=== PATIENT | male | born 1950 | race Caucasian/White ===

== ENCOUNTER 2017-07-26 05:05 | Emergency (ER) | payer BC, MEDICARE ==
[2017-07-26] MEDS ORDERED: Sodium Chloride 0.9% 1,000 ML IV ONE ×2 (06:00→06:04)
[2017-07-26] MEDS ORDERED: cefTRIAXone 2 GM in Sodium Chloride 0.9% 100 ML IV ONE (06:03)
--- NOTE | 2017-07-26 06:22 | EDM.PDOC ---
ED HPI GENERAL MEDICAL PROBLEM - General Chief Complaint: Respiratory Problem Stated Complaint: [facility] Time Seen by Provider: 07/26/17 05:05 - History of Present Illness INITIAL COMMENTS - FREE TEXT/NARRATIVE: 57-year-old male brought into the emergency room with shortness of breath and weakness. The patient is been ill for about the last 10 days started out with flulike symptoms where he was achy and just generally doesn't feel good he became short of breath about 5 days ago. The shortness of breath is not associated with any chest pain or chest pressure. With his shortness of breath his cough increased slightly from baseline. The patient has not had an appetite has not been eating or drinking. He has not had any abdominal discomfort no nausea vomiting constipation or diarrhea. The patient has a history of type 2 diabetes The patient smoke in his younger years did not smoke while he was raising his kids started smoking again 15 years ago. He does not use illicit drugs or alcohol. - Related Data Allergies Allergy/AdvReac Type Severity Reaction Status Date / Time No Known Allergies Allergy Verified 07/26/17 06:24 Home Meds: Home Meds Enalapril [Vasotec] 20 mg PO DAILY 07/26/17 [History] Insulin NPH/Insulin Reg,Human [NovoLIN 70-30] 1 unit SQ BID 07/26/17 [History] Losartan/Hydrochlorothiazide [Hyzaar 100-25 Tablet] 1 tab PO DAILY 07/26/17 [ History] Verapamil [Calan] 1 tab PO DAILY 07/26/17 [History] atorvaSTATin [Lipitor] 40 mg PO DAILY 07/26/17 [History] Past Medical History Cardiovascular History: Reports: Hypertension Endocrine/Metabolic History: Reports: Diabetes, Type II Social & Family History - Family History Family Medical History: Noncontributory - Tobacco Use Smoking Status *Q: Current Every Day Smoker Years of Tobacco use: 15 Packs/Tins Daily: 1 - Caffeine Use Caffeine Use: Reports: Soda - Recreational Drug Use Recreational Drug Use: No ED ROS GENERAL - Review of Systems Review Of Systems: See Below Constitutional: Reports: Chills, Malaise, Weakness, Fatigue HEENT: Reports: No Symptoms Respiratory: Reports: Shortness of Breath, Cough. Denies: Wheezing, Pleuritic Chest Pain Cardiovascular: Denies: Chest Pain, Dyspnea on Exertion, Edema, Palpitations GI/Abdominal: Reports: No Symptoms : Reports: No Symptoms Musculoskeletal: Reports: Other (He has been achy) Skin: Reports: Cyanosis Neurological: Reports: No Symptoms Psychiatric: Reports: No Symptoms ED EXAM, GENERAL - Physical Exam Exam: See Below Exam Limited By: No Limitations General Appearance: Alert, Moderate Distress, Other (Upon arrival here he is very pale colored lips bluish du saturation better in the low 90s according to EMS he was in the upper 60s when they arrived at his house with time his color improved and is lips normalized) Eye Exam: Bilateral Eye: Normal Inspection Nose: Normal Inspection Throat/Mouth: Other (Dry mucosa) Head: Atraumatic, Normocephalic Neck: Normal Inspection, Supple, Full Range of Motion, Other (No JVD). No: Lymphadenopathy (L), Lymphadenopathy (R) Respiratory/Chest: Decreased Breath Sounds, Other (Bibasilar crackles much worse in the right and up the right back) Cardiovascular: Regular Rate, Rhythm, No Edema, No Murmur GI/Abdominal: Normal Bowel Sounds, Soft, Non-Tender Back Exam: Normal Inspection. No: CVA Tenderness (L), CVA Tenderness (R) Extremities: Normal Inspection, No Pedal Edema Neurological: Alert, Oriented, Normal Cognition Skin Exam: Other (Initially his skin was cool and clammy however with resuscitative efforts normalized) Lymphatic: No Adenopathy EKG INTERPRETATION EKG Date: 07/26/17 Rhythm: NSR [place]: Normal QRS: RBBB ST-T: Normal QT: Normal Comparison: NA - No Prior EKG Course - Vital Signs Last Recorded V/S: Last Vital Signs Temp 35.1 C L 07/26/17 05:06 Pulse 70 07/26/17 05:06 Resp 22 H 07/26/17 05:06 BP 100/73 07/26/17 05:06 Pulse Ox 94 L 07/26/17 05:06 - Orders/Labs/Meds Orders: Active Orders 24 hr Category Date Time Status EKG Documentation Completion [RC] STAT Care 07/26/17 05:13 Active Chest 1V Frontal [CR] Stat Exams 07/26/17 05:13 Taken CULTURE BLOOD [BC] Stat Lab 07/26/17 05:55 Received CULTURE BLOOD [BC] Stat Lab 07/26/17 05:55 Received URINALYSIS W/MICROSCOPIC [UA W/MICROSCOPIC] [URIN] Stat Lab 07/26/17 05:13 Uncollected Lactated Ringers [Ringers, Lactated] 500 ml Med 07/26/17 07:48 Ordered IV .BOLUS Norepinephrine [Levophed] 4 mg Med 07/26/17 06:30 Active Dextrose 5% in Water 246 ml IV TITRATE Vancomycin 2 gm Med 07/26/17 08:00 Active Sodium Chloride 0.9% [Normal Saline] 500 ml IV ONETIME Blood Culture x2 Reflex Set [OM.PC] Stat Oth 07/26/17 05:13 Ordered Medication Orders Norepinephrine Bitartrate 4 mg (/ Dextrose/Water) 250 mls @ 7.5 mls/hr IV TITRATE MYESHA; 2 MCG/MIN PRN Reason: Protocol Last Admin: 07/26/17 06:36 Dose: 2 mcg/min, 7.5 mls/hr Vancomycin HCl 2 gm/ Sodium (Chloride) 500 mls @ 250 mls/hr IV ONETIME ONE Stop: 07/26/17 09:59 Lactated Ringer's (Ringers, Lactated) 500 mls @ 999 mls/hr IV .BOLUS ONE Stop: 07/26/17 08:18 Labs: Laboratory Tests 07/26/17 07/26/17 07/26/17 Range/Units 05:25 05:25 05:25 WBC 12.69 H (4.23-9.07) K/mm3 RBC 3.80 L (4.63-6.08) M/mm3 Hgb 12.2 L (13.7-17.5) gm/L Hct 36.2 L (40.1-51.0) % MCV 95.3 H (79.0-92.2) fl MCH 32.1 (25.7-32.2) pg MCHC 33.7 (32.2-35.5) g/dl RDW Std Deviation 42.8 (35.1-43.9) fL Plt Count 542 H (163-337) K/mm3 MPV 9.7 (9.4-12.3) fl Neutrophils % (Manual) 89 H (40-60) % Band Neutrophils % 0 (0-10) % Lymphocytes % (Manual) 8 L (20-40) % Atypical Lymphs % 0 % Monocytes % (Manual) 3 (2-10) % Eosinophils % (Manual) 0 L (0.8-7.0) % Basophils % (Manual) 0 L (0.2-1.2) Platelet Estimate See note RBC Morph Comment Not Reportable PT 13.3 H (8.0-13.0) SECONDS INR 1.21 APTT 32 (22-36) SECONDS Puncture Site ABG pH (7.35-7.45) ABG pCO2 (35.0-45.0) mmHg ABG pO2 (80.0-100.0) mmHg ABG HCO3 (22.0-26.0) meq/L ABG O2 Saturation (96.0-97.0) % ABG Base Excess (-2-2.0) Kevin Test A-a Gradient mmHg O2 Delivery Device Oxygen Flow Rate FiO2 (21.00-100.00) % Sodium 131 L (136-145) mEq/L Potassium 5.2 H (3.5-5.1) mEq/L Chloride 96 L (98-107) mEq/L Carbon Dioxide 17 L (21-32) mEq/L Anion Gap 23.2 H (5-15) BUN 35 H (7-18) mg/dL Creatinine 2.2 H (0.7-1.3) mg/dL Est Cr Clr Drug Dosing 34.56 mL/min Estimated GFR (MDRD) 30 (>60) mL/min BUN/Creatinine Ratio 15.9 (14-18) Glucose 216 H (80-115) mg/dL Lactic Acid (0.4-2.0) mmol/L Calcium 7.7 L (8.5-10.1) mg/dL Total Bilirubin 0.7 (0.2-1.0) mg/dL AST 277 H (15-37) U/L ALT 184 H (16-63) U/L Alkaline Phosphatase 102 (46-116) U/L Troponin I 0.655 H* (0.00-0.056) ng/mL NT-Pro-B Natriuret Pep 50290 H (0-125) pg/mL Total Protein 5.6 L (6.4-8.2) g/dl Albumin 1.6 L (3.4-5.0) g/dl Globulin 4.0 gm/dL Albumin/Globulin Ratio 0.4 L (1-2) 11/25/17 11/25/17 Range/Units 06:19 07:30 WBC (4.23-9.07) K/mm3 RBC (4.63-6.08) M/mm3 Hgb (13.7-17.5) gm/L Hct (40.1-51.0) % MCV (79.0-92.2) fl MCH (25.7-32.2) pg MCHC (32.2-35.5) g/dl RDW Std Deviation (35.1-43.9) fL Plt Count (163-337) K/mm3 MPV (9.4-12.3) fl Neutrophils % (Manual) (40-60) % Band Neutrophils % (0-10) % Lymphocytes % (Manual) (20-40) % Atypical Lymphs % % Monocytes % (Manual) (2-10) % Eosinophils % (Manual) (0.8-7.0) % Basophils % (Manual) (0.2-1.2) Platelet Estimate RBC Morph Comment PT (8.0-13.0) SECONDS INR APTT (22-36) SECONDS Puncture Site Rt radial ABG pH 7.37 (7.35-7.45) ABG pCO2 26.7 L (35.0-45.0) mmHg ABG pO2 98.0 (80.0-100.0) mmHg ABG HCO3 15.1 L (22.0-26.0) meq/L ABG O2 Saturation 96.1 (96.0-97.0) % ABG Base Excess -8.4 L (-2-2.0) Kevin Test Positive A-a Gradient 381 mmHg O2 Delivery Device Nonrebreather Oxygen Flow Rate 15.0 FiO2 80.00 (21.00-100.00) % Sodium (136-145) mEq/L Potassium (3.5-5.1) mEq/L Chloride (98-107) mEq/L Carbon Dioxide (21-32) mEq/L Anion Gap (5-15) BUN (7-18) mg/dL Creatinine (0.7-1.3) mg/dL Est Cr Clr Drug Dosing mL/min Estimated GFR (MDRD) (>60) mL/min BUN/Creatinine Ratio (14-18) Glucose (80-115) mg/dL Lactic Acid 2.7 H (0.4-2.0) mmol/L Calcium (8.5-10.1) mg/dL Total Bilirubin (0.2-1.0) mg/dL AST (15-37) U/L ALT (16-63) U/L Alkaline Phosphatase (46-116) U/L Troponin I (0.00-0.056) ng/mL NT-Pro-B Natriuret Pep (0-125) pg/mL Total Protein (6.4-8.2) g/dl Albumin (3.4-5.0) g/dl Globulin gm/dL Albumin/Globulin Ratio (1-2) Meds: Medications Generic Name Dose Route Start Last Admin Trade Name Noman PRN Reason Stop Dose Admin Norepinephrine Bitartrate 4 mg 250 mls @ 7.5 mls/hr 07/26/17 06:30 07/26/17 06:36 / Dextrose/Water IV 2 mcg/min TITRATE MYESHA 7.5 mls/hr Protocol Administration 2 MCG/MIN Vancomycin HCl 2 gm/ Sodium 500 mls @ 250 mls/hr 07/26/17 08:00 Chloride IV 07/26/17 09:59 ONETIME ONE Lactated Ringer's 500 mls @ 999 mls/hr 07/26/17 07:48 Ringers, Lactated IV 07/26/17 08:18 .BOLUS ONE Discontinued Medications Generic Name Dose Route Start Last Admin Trade Name Noman PRN Reason Stop Dose Admin Sodium Chloride 1,000 mls @ 999 mls/hr 07/26/17 06:00 07/26/17 06:38 Normal Saline IV 07/26/17 07:00 999 mls/hr ONETIME ONE Administration Ceftriaxone Sodium 2 gm/ 100 mls @ 200 mls/hr 07/26/17 06:03 07/26/17 07:01 Sodium Chloride IV 07/26/17 06:32 200 mls/hr ONETIME ONE Administration Sodium Chloride 1,000 mls @ 999 mls/hr 07/26/17 06:04 07/26/17 06:38 Normal Saline IV 07/26/17 07:04 999 mls/hr ONETIME ONE Administration Lactated Ringer's 1,000 mls @ 999 mls/hr 07/26/17 06:45 Ringers, Lactated IV 07/26/17 07:45 .BOLUS ONE Lactated Ringer's 500 mls @ 999 mls/hr 07/26/17 06:39 Ringers, Lactated IV 07/26/17 07:09 .BOLUS ONE Vancomycin HCl 1 gm/ Sodium 250 mls @ 250 mls/hr 07/26/17 07:17 Chloride IV 07/26/17 08:16 ONETIME ONE - Re-Assessments/Exams Free Text/Narrative Re-Assessment/Exam: 07/26/17 08:19 Patient presents to the emergency room with low blood pressure and hypoxemia. This is improving from how EMS picked him up. We attempted aggressive fluid resuscitation get ABGs labs and chest x-ray chest x-ray revealed right lower and middle lobe pneumonias with some scattered densities elsewhere. The patient responded to fluid boluses. When he arrived here even though saturations were in acceptable ranges his lips were dark and discolored pale this is improved. The patient initially received a liter of an S this is followed up with LR and multiple 500 mL boluses he is now completed his third liter after his labs were reviewed he was started on Levothroid of concern wasn't elevated proBNP and his troponin was slightly elevated however globally his labs were suggestive of poor perfusion for some time lactic acid was 2.7. As soon as blood cultures were obtained he was received 2 g of Rocephin. After consultation with Dr. Zambrano window and door installer at [facility] and Dr. Snaon emergency room physician at [facility]. he was given vancomycin, IV pharmacy recommends 2 g bolus. Initially the patient was resistant to the transfer however with continued conversation with the patient and his family he consented initially didn't understand the services they can provide that we just cannot provide here. I did discuss the situation initially with our hospitalist who did recommend the patient go to [place]. 1 Departure - Departure Time of Disposition: 06:31 Disposition: DC/Tfer to [facility] 02 Clinical Impression: Pneumonia - Discharge Information Forms: ED Department Discharge - My Orders Last 24 Hours: My Active Orders 07/26/17 05:13 EKG Documentation Completion [RC] STAT Chest 1V Frontal [CR] Stat URINALYSIS W/MICROSCOPIC [UA W/MICROSCOPIC] [URIN] Stat Blood Culture x2 Reflex Set [OM.PC] Stat 07/26/17 05:55 CULTURE BLOOD [BC] Stat CULTURE BLOOD [BC] Stat 07/26/17 06:30 Norepinephrine [Levophed] 4 mg Dextrose 5% in Water 246 ml IV TITRATE 07/26/17 07:48 Lactated Ringers [Ringers, Lactated] 500 ml IV .BOLUS 07/26/17 08:00 Vancomycin 2 gm Sodium Chloride 0.9% [Normal Saline] 500 ml IV ONETIME - Assessment/Plan Last 24 Hours: My Active Orders 07/26/17 05:13 EKG Documentation Completion [RC] STAT Chest 1V Frontal [CR] Stat URINALYSIS W/MICROSCOPIC [UA W/MICROSCOPIC] [URIN] Stat Blood Culture x2 Reflex Set [OM.PC] Stat 07/26/17 05:55 CULTURE BLOOD [BC] Stat CULTURE BLOOD [BC] Stat 07/26/17 06:30 Norepinephrine [Levophed] 4 mg Dextrose 5% in Water 246 ml IV TITRATE 07/26/17 07:48 Lactated Ringers [Ringers, Lactated] 500 ml IV .BOLUS 07/26/17 08:00 Vancomycin 2 gm Sodium Chloride 0.9% [Normal Saline] 500 ml IV ONETIME
[2017-07-26] MEDS ORDERED: Norepinephrine 4 MG in Dextrose 5% in Water 246 ML IV SCH ×2 (06:30)
[2017-07-26] MEDS ORDERED: Lactated Ringers 500 ML IV ONE ×2 (06:39→07:48)
[2017-07-26] MEDS ORDERED: Lactated Ringers 1,000 ML IV ONE (06:45)
[2017-07-26] MEDS ORDERED: Vancomycin 2 GM in Sodium Chloride 0.9% 500 ML IV ONE (08:00)
[2017-07-26] MEDS ORDERED: Vancomycin 1 GM AdvVial ONE (08:11)
--- NOTE | 2017-07-28 16:00 | CR ---
Chest: Portable view of the chest was obtained. Comparison: Prior chest x-ray of 02/23/11. Heart size and mediastinum are within normal limits for portable technique. Diffuse increased lung markings are seen on both sides of the chest which are an interval change from previous exam. Linear densities most likely due to atelectasis are also noted within the right mid and lower lung. Slight degenerative change is seen within the spine. Impression: 1. Diffuse increased lung markings which are worse on the right side. Findings presumably represent diffuse bronchitis with possible interstitial pneumonia on the right side. Mild right-sided atelectasis is also felt to be present. Diagnostic code #3 I agree with preliminary report issued by [facility] ([facility] report finalized on 07/26/17, 6:41 AM Central Time)
== END 2017-07-26 08:50 ==
LOC: JD.ED 05:05
DX: J18.9 Pneumonia, unspecified organism (principal); F17.210 Nicotine dependence, cigarettes, uncomplicated; I10 Essential (primary) hypertension; E11.9 Type 2 diabetes mellitus without complications; Z79.4 Long term (current) use of insulin; Z79.899 Other long term (current) drug therapy
CPT/HCPCS: 36415; 36600; 71010; 80053; 82803; 83605; 83880; 84484; 85025; 85610; 85730; 87040; 87804; 93005; 96360; 96361; 96365; 96366; 96375; 99285; J0696; J3370; J7030; J7040; J7060; J7120; 93010